=== PATIENT | female | born 1955 | race Caucasian/White ===

== ENCOUNTER 2020-02-14 14:09 | Outpatient (CLI) | payer MEDICARE ==
[2020-02-14] MEDS ORDERED: LOVA10TA PO (15:13)
[2020-02-14] MEDS ORDERED: OMEP-110 PO (15:13)
[2020-02-14] MEDS ORDERED: LISI-167 PO (15:13)
[2020-02-14] MEDS ORDERED: CARV6.252 PO (15:13)
[2020-02-14] MEDS ORDERED: METF500T17 PO (15:13)
[2020-02-14 15:19] LABS: MICROSCOPIC NOT IND
[2020-02-14 15:30] LABS: MEAN CORPUSCULAR HEMOGLOBIN 32.9 pg (27.0-34.8); MEAN CORPUSCULAR HGB CONC 34.2 g/dL (32.4-35.8); MEAN CORPUSCULAR VOLUME 96.3 fL (80-100); MEAN PLATELET VOLUME 8.2 fL (7.4-10.4); PLATELET COUNT 50 x10^3/uL (130-400); RED BLOOD COUNT 4.32 x10^6/uL (3.82-5.3); RED CELL DISTRIBUTION WIDTH 13.8 % (9.6-15.2)
[2020-02-14 15:31] LABS: ALANINE AMINOTRANSFERASE 49 U/L (12-78); ALBUMIN 3.6 g/dL (3.4-5.0); ANION GAP 4 mmol/L (5-15); CALCIUM 8.9 mg/dL (8.5-10.1); CHLORIDE 107 mmol/L (98-107); CREATININE 0.67 mg/dL (0.55-1.02)
[2020-02-14 15:33] LABS: ALKALINE PHOSPHATASE 86 U/L (45-117); BILIRUBIN,TOTAL 0.9 mg/dL (0.2-1.0); TOTAL PROTEIN 7.9 g/dL (6.4-8.2)
[2020-02-14 15:41] LABS: INTERNATIONAL NORMALIZED RATIO 1.11 (0.93-1.1); PROTHROMBIN TIME 11.8 Seconds (9.6-11.5)
[2020-02-14 16:15] LABS: BASOPHILS # (AUTO) 0.01 x10^3/uL (0-0.1); BASOPHILS % (AUTO) 0 % (0-1); EOSINOPHILS # (AUTO) 0.06 x10^3/uL (0-0.4); EOSINOPHILS % (AUTO) 2 % (1-7); LYMPHOCYTES # (AUTO) 0.72 x10^3/uL (1-3.4); LYMPHOCYTES % (AUTO) 27 % (22-44); MD SCAN; MONOCYTES # (AUTO) 0.22 x10^3/uL (0.2-0.8); MONOCYTES % (AUTO) 8 % (2-9); NEUTROPHILS # (AUTO) 1.65 x10^3/uL (1.8-6.8); NEUTROPHILS % (AUTO) 62 % (42-75)
== END 2020-02-14 23:59 | disposition home or self-care (01) ==
LOC: STAR 14:09
PROVIDERS: ATTEND Obstetrics & Gynecology Gynecology
DX: Z01.818 Encounter for other preprocedural examination (principal); N95.0 Postmenopausal bleeding; N84.1 Polyp of cervix uteri
CPT/HCPCS: 36415; 80053; 81003; 85025; 85610; 85730; 93005

== ENCOUNTER 2020-02-25 09:56 | Day surgery (SDC) | payer MEDICARE, OTHER ==
[~2020-02-25] VITALS: Ht 165.1 cm; Wt 80.3 kg
[~2020-02-25 09:56] MED LIST: CARV6.252 PO; LISI-167 PO; LOVA10TA PO; METF500T17 PO; OMEP-110 PO
[2020-02-25] MEDS ORDERED: CHLORHEXIDINE 15 ML UDC MM ONE (11:00)
[2020-02-25 11:15] VITALS: BP 119/73
[2020-02-25 11:31] VITALS: BP 138/69
[2020-02-25 12:17] VITALS: BP 125/76
[2020-02-25] MEDS ORDERED: BUPIVACAINE/PF 0.25% ONE (12:19)
[2020-02-25] MEDS ORDERED: SILVER NITRATE STICK TP ONE (12:19)
[2020-02-25] MEDS ORDERED: BUPIVACAINE/PF-EPI 0.25% 1:200K ONE (12:19)
[2020-02-25] MEDS ORDERED: LACTATED RINGERS 1,000 ML IV SCH (12:22)
[2020-02-25] MEDS ORDERED: FENTANYL PF 100 MCG/2ML ONE (12:33)
[2020-02-25] MEDS ORDERED: DIAZEPAM 5 MG/ML, 2ML IVPush PRN (13:00)
[2020-02-25] MEDS ORDERED: LABETALOL 5MG/ML, 20ML IV PRN (13:00)
[2020-02-25] MEDS ORDERED: MEPERIDINE/PF 25MG/0.5ML IVPush PRN (13:00)
[2020-02-25] MEDS ORDERED: OXYcodone 5 MG/5 ML ORAL.SOL UDC PO PRN (13:00)
[2020-02-25] MEDS ORDERED: ACETAMINOPHEN 325 MG TABLET PO PRN (13:00)
[2020-02-25] MEDS ORDERED: KETOROLAC 30 MG/1 ML IV PRN (13:00)
[2020-02-25] MEDS ORDERED: ALBUTEROL SULFATE 2.5 MG/3 ML NPPB PRN (13:00)
[2020-02-25] MEDS ORDERED: HYDROmorphone 2 MG/ML, 1ML IVPush PRN (13:00)
[2020-02-25] MEDS ORDERED: FENTANYL PF 100 MCG/2ML IV PRN (13:00)
[2020-02-25] MEDS ORDERED: hydrALAzine 20 MG/ML, 1ML IV PRN (13:00)
[2020-02-25] MEDS ORDERED: PROMETHAZINE 25 MG/ML, 1ML IV PRN (13:00)
[2020-02-25] MEDS ORDERED: GLYCOPYRROLATE 0.2MG/1ML, 5ML ONE (13:17)
[2020-02-25] MEDS ORDERED: ONDANSETRON 2MG/ML, 2ML ONE (13:17)
[2020-02-25] MEDS ORDERED: ROCURONIUM 10MG/ML,5ML ONE (13:17)
[2020-02-25] MEDS ORDERED: NEOSTIGMINE 1 MG/ML, 10ML ONE (13:17)
[2020-02-25] MEDS ORDERED: DEXAMETHASONE 4 MG/ML, 1ML ONE (13:17)
[2020-02-25] MEDS ORDERED: CEFAZOLIN 1,000 MG ONE (13:17)
[2020-02-25] MEDS ORDERED: SUCCINYLCHOLINE 20 MG/ML, 10ML ONE (13:17)
[2020-02-25] MEDS ORDERED: PROPOFOL 10 MG/ML, 20ML ONE ×2 (13:17→13:18)
[2020-02-25] MEDS ORDERED: ACETAMINOPHEN 325 MG TABLET ONE (13:40)
[2020-02-25] MEDS ORDERED: ACETAMINOPHEN 650 MG/20.3 ML UDC ONE (13:40)
== END 2020-02-25 15:55 | disposition home or self-care (01) ==
LOC: OR 09:56
PROVIDERS: ATTEND Obstetrics & Gynecology Gynecology
DX: T83.39XA Other mechanical complication of intrauterine contraceptive device, initial encounter (principal); Z11.59 Encounter for screening for other viral diseases; N95.0 Postmenopausal bleeding; Y83.8 Other surgical procedures as the cause of abnormal reaction of the patient, or of later complication, without mention of misadventure at the time of the procedure; I10 Essential (primary) hypertension; E78.5 Hyperlipidemia, unspecified; E11.9 Type 2 diabetes mellitus without complications; K21.9 Gastro-esophageal reflux disease without esophagitis; E66.3 Overweight; Z68.29 Body mass index [BMI] 29.0-29.9, adult; Z79.84 Long term (current) use of oral hypoglycemic drugs; Z79.899 Other long term (current) drug therapy; Z88.0 Allergy status to penicillin; Z88.8 Allergy status to other drugs, medicaments and biological substances; Z90.49 Acquired absence of other specified parts of digestive tract; Z98.890 Other specified postprocedural states; Z72.89 Other problems related to lifestyle; Z80.3 Family history of malignant neoplasm of breast; Z82.49 Family history of ischemic heart disease and other diseases of the circulatory system; Z83.3 Family history of diabetes mellitus
CPT/HCPCS: 36415; 58562; 82962; 86850; 86900; 87635; 88305; J0690; J1100; J2405; J2704; J3010; J7120; P9035; J2710; J3490; J0330